=== PATIENT | female | born 1995 | race Caucasian/White ===

== ENCOUNTER 2016-10-18 16:58 | Outpatient (CLI) | payer MEDICAID ==
[~2016-10-18] VITALS: Ht 144.8 cm; Wt 60.0 kg
[~2016-10-18 16:58] MED LIST: CYCL-319 PO; HYDR-3498 PO
[2016-10-18 17:13] VITALS: BP 104/59; PULSE 98; RESP 18; Ht 144.8 cm; Wt 60.0 kg
[2016-10-18] MEDS ORDERED: PREN-93 PO (17:13)
[2016-10-18] MEDS ORDERED: FER325 PO (17:13)
[2016-10-18 18:24] LABS: BASOPHILS % 0.1 % (0.0-2.0); EOSINOPHILS % 0.2 % (0.0-7.0); HEMATOCRIT 33.5 % (37.0-47.0); HEMOGLOBIN 11.5 g/dl (12.0-16.0); LYMPHOCYTES # 1.3 10^3/ul (0.8-2.9); LYMPHOCYTES % 16.5 % (15.0-51.0); MEAN CORPUSCULAR HEMOGLOBIN 32.8 pg (29.0-33.0); MEAN CORPUSCULAR HGB CONC 34.3 g/dl (32.0-37.0); MEAN CORPUSCULAR VOLUME 95.4 fl (82.0-101.0); MEAN PLATELET VOLUME 10.2 fl (7.4-10.4); MONOCYTE # 0.6 10^3/ul (0.3-0.9); MONOCYTES % 7.7 % (0.0-11.0); NEUTROPHILS % 74.4 % (39.0-77.0); PLATELET COUNT 224 10^3/UL (140-415); RED BLOOD COUNT 3.51 10^6/ul (4.20-5.40); RED CELL DISTRIBUTION WIDTH 13.9 % (11.5-14.5); WHITE BLOOD COUNT 8.1 10^3/ul (4.8-10.8)
[2016-10-18 19:39] LABS: ADD UMIC NO; UR ASCORBIC ACID NEGATIVE (NEGATIVE); UR BILIRUBIN (Dip) NEGATIVE (NEGATIVE); UR BLOOD (Dip) NEGATIVE (NEGATIVE); UR CLARITY CLEAR (CLEAR); UR COLOR COLORLESS (YELLOW); UR GLUCOSE (Dip) NEGATIVE (NEGATIVE); UR KETONES (Dip) NEGATIVE (NEGATIVE); UR LEUKOCYTE ESTERASE (Dip) NEGATIVE Leu/ul (NEGATIVE); UR NITRITE (Dip) NEGATIVE (NEGATIVE); UR SPECIFIC GRAVITY (Dip) 1.002 (1.003-1.030); UR TOTAL PROTEIN (Dip) NEGATIVE (NEGATIVE); UR UROBILINOGEN (Dip) NEGATIVE (NEGATIVE)
--- NOTE | 2016-10-18 20:00 | RADRPT ---
AMENDMENT: 10/18/2016 8:15:38 PM Raphael Lawton M.D Amniotic fluid index was not measured. Follow-up examination can be obtained. Deepest vertical fluid pocket appears to measure 6.5 cm PROCEDURE: Obstetrical ultrasound. CLINICAL INDICATION: , evaluation. Pelvic pain. TECHNIQUE: Transabdominal and transvaginal sonographic images of the uterus obtained afte r first trimester, greater than 14 weeks gestation. Single intrauterine gestation present. COMPARISON: No prior studies are available for comparison. FINDINGS: Single intrauterine gestation. There is a transverse maternal left presentation. Measurements were made in order to determine age. The results are as follows: BPD = 26 weeks 4 day(s) HC = 26 weeks 2 day(s) AC = 26 weeks 6 day(s) FL = 26 weeks 0 day(s) Heart rate = 158 beats per minute The placenta is anterior. There is no evidence for an abruption or placenta previa. Cervix is closed as visualized transvaginally measuring 4.2 cm. Ovaries are not visualized. IMPRESSION: Single intrauterine gestation of approximately 26 weeks 2 days by ultrasound criteria. [place] estimated weight = 935 g; 53 percentile for gestational age of 26 weeks 1 days. Transverse maternal left presentation. RPTAT: AADD .Raphael Lawton MD, Date Time Electronically viewed and signed by .Raphael Lawton MD, MD on 10/18/2016 20:15 .B/
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
== END 2016-10-18 21:20 | disposition home or self-care (01) ==
LOC: OBT 16:58 → L-D 16:59 → OBT 21:20
PROVIDERS: ATTEND Obstetrics & Gynecology
DX: O9A.212 Injury, poisoning and certain other consequences of external causes complicating pregnancy, second trimester (principal); Z3A.26 26 weeks gestation of pregnancy; V49.9XXA Car occupant (driver) (passenger) injured in unspecified traffic accident, initial encounter; Y92.410 Unspecified street and highway as the place of occurrence of the external cause
CPT/HCPCS: 76815; 76817; 81003; 85025; 85384; 85460; 86850; 86900; 86901; Z7500; G0463

== ENCOUNTER 2017-01-05 18:33 | Outpatient (CLI) | payer MEDICAID ==
[~2017-01-05] VITALS: Ht 142.2 cm; Wt 65.7 kg
[~2017-01-05 18:33] MED LIST changes: -CYCL-319 PO; +FER325 PO; -HYDR-3498 PO; +PREN-93 PO
[2017-01-05 18:56] VITALS: BP 102/61; PULSE 124; RESP 18; Ht 142.2 cm; Wt 65.7 kg
--- NOTE | 2017-01-05 19:10 | RADRPT ---
PROCEDURE: US OB biophysical profile. CLINICAL INDICATION: decreased movements TECHNIQUE: Multiple sonographic images of the pelvis were obtained. The images were reviewed on a PACS workstation. COMPARISON: 10/18/2016 FINDINGS: There is a single viable intrauterine gestation. Cardiac activity is present with 163 beats per min [place]. There is a vertex presentation. The placenta is anterior. There is no evidence of placental abruption. There is a normal amount of amniotic fluid with an MARYLU = 8.5 cm. Biophysical profile: movement 2/2 tone 2/2. breathing 2/2 MARYLU 2/2 Total 09/13 RPTAT: AA . IMPRESSION: Normal biophysical profile. . .Antonio Beth MD, MD Date Time Electronically viewed and signed by .Antonio Beth MD, MD on 01/05/2017 19:08 .S/
[2017-01-05] MEDS ORDERED: ACETAMINOPHEN 500 MG TAB PO STA (20:05)
[2017-01-05 20:26] LABS: ADD UMIC NO; UR ASCORBIC ACID NEGATIVE (NEGATIVE); UR BILIRUBIN (Dip) NEGATIVE (NEGATIVE); UR BLOOD (Dip) NEGATIVE (NEGATIVE); UR CLARITY CLEAR (CLEAR); UR COLOR COLORLESS (YELLOW); UR GLUCOSE (Dip) NEGATIVE (NEGATIVE); UR KETONES (Dip) TRACE mg/dL (NEGATIVE); UR LEUKOCYTE ESTERASE (Dip) NEGATIVE Leu/ul (NEGATIVE); UR NITRITE (Dip) NEGATIVE (NEGATIVE); UR SPECIFIC GRAVITY (Dip) 1.001 (1.003-1.030); UR TOTAL PROTEIN (Dip) NEGATIVE (NEGATIVE); UR UROBILINOGEN (Dip) NEGATIVE (NEGATIVE)
[2017-01-05 20:39] LABS: BARBITURATES Negative (NEGATIVE); BENZODIAZEPINES Negative (NEGATIVE); CANNABINOIDS Negative (NEGATIVE); COCAINE Negative (NEGATIVE); OPIATES Negative (NEGATIVE)
--- NOTE | 2017-01-05 23:37 | PN ---
Triage Information Date/Time Jan 05, 2017 Reason for visit: DFM Weeks of Gestation 37w 3d /Para 2/0 Diabetes: none Hypertention: none Additional information PMHx: none. PSHx: none. NKDA. Objective Vital Signs Date Time Temp Pulse Resp B/P Pulse Ox O2 Delivery O2 Flow Rate FiO2 01/05/17 18:56 99.5 124 18 102/61 99 Room Air Heart Rate: 140's Heart Rate Comments Accels to 170 bpm. No decels. Contractions: < 5 Minutes Apart Exam 50%/closed/-2 Results/Medications Results 24 hrs Laboratory Tests Test 01/05/17 19:15 Urine Color COLORLESS Urine Clarity CLEAR Urine pH 7.0 Urine Specific [place] 1.001 L Urine Ketones TRACE A Urine Nitrite NEGATIVE Urine Bilirubin NEGATIVE Urine Urobilinogen NEGATIVE Urine Leukocyte Esterase NEGATIVE Urine Hemoglobin NEGATIVE Urine Glucose NEGATIVE Urine Total Protein NEGATIVE Urine Opiates Screen Negative Urine Barbiturates Negative Urine Amphetamines Screen Negative Urine Benzodiazepines Screen Negative Urine Cocaine Screen Negative Urine Cannabinoids Negative Imaging Results BPP 8/8. MARYLU 8.5 cm. Disposition: Discharge Assessment/Plan A: IUP at 37w 3d. Decreased movement. Prodromal labor. P: D/C home. Labor precautions given. Pt now feeling the baby moving. To keep up fluid intake as HR was up on admit but came down to 98-103 after a pitcher of water. KIMMIE CARMICHAEL MD Jan 05, 2017 23:37
--- NOTE | 2017-01-05 23:51 | TRIAGE ---
OB Triage Datetime Report Generated by CPN: 01/05/2017 23:50 Datetime: 01/05/2017 23:24 Stage of : OB Triage Labor Evaluation Frequency: 1.5-3 Monitor Mode: External Duration (sec)2399: 30-60 Quality: Mild Pattern: Normal: <= 5 Contractions in 10 Minutes Resting Tone [place]: Relaxed Heart Rate FHR Baseline Rate: 150 Monitor Mode: External US FHR Baseline Changes: No Baseline Change Variability: Moderate 6-25 bpm Accelerations: 15X15 Decelerations: None Category: Category I Pain Assessment Pain Scale: 4 Pain Presence: Intermittent Pain Type: Cramping Pain Location: Abdomen Datetime: 01/05/2017 22:36 Stage of : OB Triage Labor Evaluation Frequency: 1.5-3 Monitor Mode: External Duration (sec)2399: 30-60 Quality: Mild Pattern: Normal: <= 5 Contractions in 10 Minutes Resting Tone [place]: Relaxed Heart Rate FHR Baseline Rate: 140 Monitor Mode: External US Variability: Moderate 6-25 bpm Accelerations: 15X15 Pain Assessment Pain Scale: 5 Pain Presence: Intermittent Pain Type: Cramping Pain Location: Abdomen Datetime: 01/05/2017 21:20 Stage of : OB Triage Labor Evaluation Frequency: 2-4 Monitor Mode: External Quality: Mild Pattern: Normal: <= 5 Contractions in 10 Minutes Resting Tone [place]: Relaxed Heart Rate FHR Baseline Rate: 150 Monitor Mode: External US FHR Baseline Changes: No Baseline Change Variability: Moderate 6-25 bpm Accelerations: 15X15 Decelerations: None Category: Category I Pain Assessment Pain Scale: 1 Pain Presence: Intermittent Pain Type: Cramping Pain Location: Abdomen Pain Assessment Comments: Pt states she is feeling better after tylenol Datetime: 01/05/2017 20:26 Stage of : OB Triage Heart Rate FHR Baseline Rate: 145 Monitor Mode: External US FHR Baseline Changes: No Baseline Change Variability: Moderate 6-25 bpm Accelerations: 15X15 Decelerations: None Category: Category I Vaginal Exam Dilatation (cms): 0.0 Effacement (%): 50 Station: -2 Exam By: Harish Jacinto Membrane Status: Intact Vaginal Bleeding: None Cervix, Consistency: Moderate Cervix, Position: Posterior Presentation 'A': Cephalic Datetime: 01/05/2017 19:55 Stage of : OB Triage Datetime: 01/05/2017 19:40 Stage of : OB Triage Labor Evaluation Frequency: 1-3 Monitor Mode: External Duration (sec)2399: 20-60sec Quality: Mild Pattern: Normal: <= 5 Contractions in 10 Minutes Resting Tone [place]: Relaxed Heart Rate FHR Baseline Rate: 150 Monitor Mode: External US Variability: Moderate 6-25 bpm Accelerations: 15X15 Pain Assessment Pain Scale: 1 Pain Presence: Intermittent Pain Type: Cramping Pain Location: Abdomen Datetime: 01/05/2017 18:51 Assessment Type: Triage Time of Arrival: 01/05/2017 18:27 EGA: 37.3 Arrived By: Ambulatory Arrived From: Home Chief Complaint: c/o DFM Movement: Decreased Contractions: Denies/Absent Rupture of Membranes: Denies Vaginal Bleeding: None Vaginal Discharge: Denies Recent Sexual Intercouse: Denies Abdominal Trauma: Not Applicable Patient Complaints: None; Cough Time Provider Notified: 01/05/2017 18:50 Provider Notified: Dr Lerner Initial Plan: NST/BPP Maternal Assessment Level of Consciousness: Fully Conscious DTR's/Clonus: DTRs 2+; No Clonus Headache: Denies Blurred Vision: No Respiratory Effort: Unlabored; Regular Rhythm; Equal Expansion Breath Sounds, Left: Clear and Equal Breath Sounds, Right: Clear and Equal Nausea/Vomiting: Denies RUQ Epigastric Pain: Denies Lower Extremities Edema: None Degree: None Upper Extremities Edema: None Degree: None Facial Edema: None Fall Risk Assessment History of Falling: (0) No Secondary Diagnosis: (0) No Ambulatory Aid: (0) Bedrest/Nurse Assist IV Therapy: (0) No Gait: (0) Normal/Bedrest/Immobile Mental Status: (0) Oriented to Own Ability Fall Score: 0 Fall Risk Score Definition: No Risk: No action required Datetime: 01/05/2017 18:49 Monitor Mode: External Monitor Mode: External US Datetime: 10/18/2016 17:09 Fall Score: 0 Fall Risk Score Definition: No Risk: No action required Datetime: 10/18/2016 17:08 EGA: 26.1
== END 2017-01-05 23:36 | disposition home or self-care (01) ==
LOC: OBT 18:33 → L-D 18:35 → OBT 23:36
PROVIDERS: ATTEND Obstetrics & Gynecology
DX: O36.8130 Decreased fetal movements, third trimester, not applicable or unspecified (principal); Z3A.37 37 weeks gestation of pregnancy
CPT/HCPCS: 76818; 80307; 81003; Z7610; G0463

== ENCOUNTER 2017-01-26 10:42 | Inpatient (IN) | payer MEDICAID ==
[~2017-01-26] VITALS: Ht 144.8 cm; Wt 65.5 kg
[~2017-01-26 10:42] MED LIST changes: -FER325 PO
[2017-01-26 10:53] VITALS: BP 110/58; PULSE 115; RESP 18; Ht 144.8 cm; Wt 65.5 kg
[2017-01-26] MEDS ORDERED: FER325 PO (10:53)
--- NOTE | 2017-01-26 11:12 | RADRPT ---
PROCEDURE: Obstetrical ultrasound. CLINICAL INDICATION: , evaluation. Pelvic pain. Post dates TECHNIQUE: Transabdominal sonographic images of the uterus obtained after first trimester , greater than 14 weeks gestation. Single intrauterine gestation present. COMPARISON: US PELVIS 01/05/2017 FINDINGS: Single intrauterine gestation. There is a cephalic presentation. Measurements were made in order to determine age. The results are as follows: BPD = 37 weeks 6 day(s) HC = 38 weeks 1 day(s) AC = 40 weeks 3 day(s) FL = 38 weeks 6 day(s) MARYLU = not measured Heart rate = 161 beats per minute The placenta is anterior. There is no evidence for an abruption or placenta previa. Ovaries are not visualized. IMPRESSION: Single intrauterine gestation of approximately 38 weeks 6 days by ultrasound criteria. [place] estimated weight = 3808 g; 59 percentile for gestational age of 40 weeks 3 days. RPTAT: AADD .Raphael Lawton MD, MD Date Time Electronically viewed and signed by .Raphael Lawton MD, on 01/26/2017 11:12 .B/
--- NOTE | 2017-01-26 11:19 | RADRPT ---
PROCEDURE: US OB biophysical profile. CLINICAL INDICATION: Biophysical profile TECHNIQUE: Multiple sonographic images of the pelvis were obtained. The images were reviewed on a PACS workstation. COMPARISON: None FINDINGS: There is a single live intrauterine , in cephalic presentation. A normal heart rate i s identified measuring 142 beats per minute. The amniotic fluid index is within normal limits measur ing 8.3 cm. The placenta is grade II located anteriorly. Biophysical profile: movement 2/2 tone 2/2. breathing 2/2 MARYLU 2/2 Total 09/13 IMPRESSION: 1. Biophysical profile score of 8/8. 2. Single live intrauterine in cephalic presentation with normal heart rate of 142 b pm. 3. Normal amniotic fluid index of 8.3 cm. RPTAT: AAPP Physician Debbie Date Time Electronically viewed and signed by Physician Debbie on 01/26/2017 11:18 SANDRA/
--- NOTE | 2017-01-26 11:53 | TRIAGE ---
OB Triage Datetime Report Generated by CPN: 01/26/2017 11:53 Datetime: 01/26/2017 11:42 Vaginal Exam Dilatation (cms): 2.0 Effacement (%): 70 Station: -2 Exam By: REX Vaginal Bleeding: None Cervix, Consistency: Soft Cervix, Position: Midposition Presentation 'A': Cephalic Datetime: 01/26/2017 11:39 Labor Evaluation Monitor Mode: External Heart Rate Monitor Mode: External US Datetime: 01/26/2017 10:51 Assessment Type: Triage Maternal Assessment Level of Consciousness: Fully Conscious DTR's/Clonus: DTRs 2+; No Clonus Headache: Denies Blurred Vision: No Respiratory Effort: Unlabored; Regular Rhythm; Equal Expansion Breath Sounds, Left: Clear and Equal Breath Sounds, Right: Clear and Equal Nausea/Vomiting: Denies RUQ Epigastric Pain: Denies Lower Extremities Edema: None Degree: None Upper Extremities Edema: None Degree: None Facial Edema: None Fall Risk Assessment History of Falling: (0) No Secondary Diagnosis: (0) No Ambulatory Aid: (0) Bedrest/Nurse Assist IV Therapy: (0) No Gait: (0) Normal/Bedrest/Immobile Mental Status: (0) Oriented to Own Ability Fall Score: 0 Fall Risk Score Definition: No Risk: No action required Datetime: 01/26/2017 10:48 Time of Arrival: 01/26/2017 10:40 EGA: 40.3 Arrived By: Ambulatory Arrived From: Home Chief Complaint: pt here for NST/BPP FOR POST DATES Movement: Decreased Contractions: Denies/Absent Rupture of Membranes: Denies Vaginal Bleeding: None Vaginal Discharge: Denies Recent Sexual Intercouse: Denies Abdominal Trauma: Not Applicable Patient Complaints: None Time Provider Notified: 01/26/2017 10:50 Provider Notified: REX Initial Plan: NST/BPP/EFW Datetime: 01/26/2017 10:46 Labor Evaluation Monitor Mode: External Heart Rate Monitor Mode: External US Datetime: 01/05/2017 18:51 EGA: 37.3 Fall Score: 0 Fall Risk Score Definition: No Risk: No action required Datetime: 10/18/2016 17:09 Fall Score: 0 Fall Risk Score Definition: No Risk: No action required Datetime: 10/18/2016 17:08 EGA: 26.1
[2017-01-26] MEDS ORDERED: METHYLERGONOVINE 0.2 MG INJ IM PRN (12:00)
[2017-01-26] MEDS ORDERED: MISOPROSTOL 200 MCG TAB PR PRN (12:00)
[2017-01-26] MEDS ORDERED: CARBOPROST 250 MCG INJ IM PRN (12:00)
[2017-01-26] MEDS ORDERED: BUTORPHANOL 2 MG INJ IV PRN (12:00)
[2017-01-26] MEDS ORDERED: IBUPROFEN 600 MG TAB PO PRN (12:00)
[2017-01-26] MEDS ORDERED: LIDOCAINE 1% (MPF) 30 ML INJ INJ PRN (12:00)
[2017-01-26] MEDS ORDERED: OXYTOCIN 30 UNITS/LR 500 ML IV PRN (12:00)
[2017-01-26 13:50] LABS: BASOPHILS % 0.2 % (0.0-2.0); EOSINOPHILS % 0.2 % (0.0-7.0); HEMATOCRIT 39.8 % (37.0-47.0); LYMPHOCYTES # 1.4 10^3/ul (0.8-2.9); LYMPHOCYTES % 21.8 % (15.0-51.0); MEAN CORPUSCULAR HEMOGLOBIN 32.7 pg (29.0-33.0); MEAN CORPUSCULAR HGB CONC 35.2 g/dl (32.0-37.0); MEAN PLATELET VOLUME 10.7 fl (7.4-10.4); MONOCYTE # 0.4 10^3/ul (0.3-0.9); NEUTROPHIL # 4.6 10^3/ul (1.6-7.5); NEUTROPHILS % 71.2 % (39.0-77.0); PLATELET COUNT 255 10^3/UL (140-415); RED BLOOD COUNT 4.28 10^6/ul (4.20-5.40); RED CELL DISTRIBUTION WIDTH 13.1 % (11.5-14.5); WHITE BLOOD COUNT 6.5 10^3/ul (4.8-10.8)
[2017-01-26 14:15] LABS: INR 0.85; PARTIAL THROMBOPLASTIN TIME 30.7 Sec (25.0-35.0); PROTIME 11.7 Sec (11.9-14.9); PT RATIO 0.9
[2017-01-26] MEDS: LACTATED RINGER'S 1,000 ML IV SCH ×2 (15:13→19:18)
[2017-01-26] MEDS: OXYTOCIN 30 UNITS/LR 500 ML IV SCH (15:22)
[2017-01-26] MEDS ORDERED: OXYTOCIN 30 UNITS/LR 500 ML IV SCH ×2 (15:30)
[2017-01-27] MEDS: LACTATED RINGER'S 1,000 ML IV SCH ×5 (03:13→20:15)
[2017-01-27] MEDS ORDERED: FENTAnyl 2MCG/ML-ROPIV 0.2% 100 ML ONE (04:36)
[2017-01-27] MEDS ORDERED: NALOXONE (0.4 MG/ML) INJ IV PRN (05:00)
[2017-01-27] MEDS ORDERED: HYDROmorphONE 0.5 MG/0.5 ML SYG IV PRN ×2 (05:00)
[2017-01-27] MEDS ORDERED: KETOROLAC 30 MG INJ IV PRN (05:00)
[2017-01-27] MEDS ORDERED: ONDANSETRON 4 MG INJ IV PRN (05:00)
[2017-01-27] MEDS ORDERED: DIPHENHYDRAMINE 50 MG INJ IV PRN (05:00)
[2017-01-27] MEDS: FENTAnyl 2MCG/ML-ROPIV 0.2% 100 ML BAG EPI SCH ×2 (13:58→20:20)
[2017-01-27] MEDS ORDERED: AZITHROMYCIN 500MG/NS (PMX) 250 ML IVPB ONE (17:30)
--- NOTE | 2017-01-27 18:13 | HP ---
Date/Time of Note Date/Time of Note DATE: 01/27/17 TIME: 18:07 OB - History Hx of Present Free Text/Dictation This is a 20 years old female SAB 1 EDC January 23, 2017 admitted to the hospital at 40 weeks and 3 days gestation in labor pelvic, examination on admission cervix 2 cm dilated 70% effaced vertex at -2 station heart rate category 1, physical profile 8/80 estimated weight 3808. Chief Complaint: Labor contraction Estimated Due Date: Jan 23, 2017 : 2 Para: 0 Spontaneous : 1 Care: Good Care Ultrasounds: Normal mid trimester US Obstetrical Complications: None Medical Complications: None Past Family/Social History * Past Medical, Surgical, Family and Obstetric Histories reviewed from chart. Rubella: immune RPR/VDRL: Negative GBS Status: Negative HBsAG: Negative OB Admission Exam Vital Signs Vital Signs Vital Signs Date Time Temp Pulse Resp B/P Pulse Ox O2 Delivery O2 Flow Rate FiO2 01/26/17 10:53 98.4 115 18 110/58 Room Air Physical Exam HEENT: WNL Heart: Rhythm Normal Lungs: Clear, Equal Abdomen: WNL Extremities: Normal Reflexes: Normal Cervical Dilatation: 2cm Effacement: Other (70%) Station: -2 Membranes: Intact Heart Rate: 120's Accelerations: Accelerations Present Decelerations: No Decelerations Varibility: Moderate Contractions on Admission: >10 Minutes Apart Intensity: Mild Last 72 hours Lab Results CBC & BMP 01/26/17 13:30 JOSE GUADALUPE GOODMAN MD Jan 27, 2017 18:13
[2017-01-27] MEDS ORDERED: ACETAMINOPHEN 325 MG TAB PO PRN (19:00)
[2017-01-27] MEDS ORDERED: GENTAMICIN 120 MG/NS (PMX) 100 ML IVPB ONE (20:00)
[2017-01-27] MEDS ORDERED: GENTAMICIN IVPB ONE (20:03)
[2017-01-27] MEDS ORDERED: NS IVPB ONE (20:03)
[2017-01-27] MEDS ORDERED: GENTAMICIN 120 MG/NS (PMX) 100 ML IVPB PRN (20:30)
[2017-01-27] MEDS: AMPICILLIN 1 GM/NS (PMX) 50 ML IVPB SCH (20:54)
[2017-01-28] MEDS: LACTATED RINGER'S 1,000 ML IV SCH ×2 (00:30→23:00)
[2017-01-28] MEDS: AMPICILLIN 1 GM/NS (PMX) 50 ML IVPB SCH ×3 (00:30→09:03)
[2017-01-28] MEDS: FENTAnyl 2MCG/ML-ROPIV 0.2% 100 ML BAG EPI SCH ×2 (02:57→08:53)
[2017-01-28] MEDS ORDERED: GENTAMICIN 80 MG/NS (PMX) 50 ML IVPB SCH (04:00)
[2017-01-28] MEDS: OXYTOCIN 30 UNITS/LR 500 ML IV SCH (04:29)
[2017-01-28] MEDS ORDERED: CEFAZOLIN 2 GM/50 ML (PMX) 50 ML IVPB ONE (10:00)
[2017-01-28] MEDS ORDERED: LIDOCAINE 2% (SDV) 5 ML INJ ONE (10:47)
[2017-01-28] MEDS ORDERED: NA BICARBONATE 8.4% 50 ML SYG ONE (10:47)
[2017-01-28] MEDS ORDERED: METOCLOPRAMIDE 10 MG INJ ONE (10:48)
[2017-01-28] MEDS ORDERED: OXYTOCIN 10 UNIT INJ ONE (10:48)
[2017-01-28] MEDS ORDERED: FENTAnyl 50 MCG/ML VIAL ONE ×2 (10:48→11:23)
[2017-01-28] MEDS ORDERED: morphine SULFATE/PF (10 MG/10 ML) INJ ONE (10:48)
[2017-01-28] MEDS ORDERED: PHENYLephrine (100 MCG/ML) 5ML SYG ONE (10:48)
[2017-01-28] MEDS ORDERED: DEXAMETHASONE 4 MG/ML 1 ML INJ ONE (11:10)
[2017-01-28] MEDS ORDERED: MIDAZOLAM 1 MG/ML 2 ML INJ ONE (11:17)
[2017-01-28] MEDS ORDERED: hydrALAzine 20 MG INJ IV PRN (11:30)
[2017-01-28] MEDS ORDERED: LABETALOL HCL 20MG INJ IV PRN (11:30)
[2017-01-28] MEDS ORDERED: morphine 2 MG INJ IV PRN (11:30)
[2017-01-28] MEDS ORDERED: NALBUPHINE HCL (10 MG/1 ML) INJ IV PRN (11:30)
[2017-01-28] MEDS ORDERED: ALBUTEROL 0.083% (NEB) 2.5 MG/3 ML AMP HHN PRN (11:30)
[2017-01-28] MEDS ORDERED: OXYCODONE/ACETAMINOPHEN (5/325) TAB PO PRN ×8 (11:30→12:30)
[2017-01-28] MEDS ORDERED: MEPERIDINE 25 MG INJ IV PRN (11:30)
[2017-01-28] MEDS ORDERED: IPRATROPIUM (NEB) 0.5 MG/2.5 ML AMP HHN PRN (11:30)
[2017-01-28] MEDS ORDERED: NALOXONE (0.4 MG/ML) INJ IV PRN (11:30)
[2017-01-28] MEDS ORDERED: DIPHENHYDRAMINE 50 MG INJ IV PRN ×2 (11:30)
[2017-01-28] MEDS ORDERED: KETOROLAC 30 MG INJ IV PRN (11:30)
[2017-01-28] MEDS ORDERED: EPHEDrine SULFATE 50 MG/5 ML SYG IV PRN (11:30)
[2017-01-28] MEDS ORDERED: FENTAnyl 50 MCG/ML VIAL IV PRN ×3 (11:30)
[2017-01-28] MEDS ORDERED: HYDROmorphONE (0.2 MG/ML) 10ML SYG IV PRN ×3 (11:30)
[2017-01-28] MEDS ORDERED: morphine 4 MG/ML VIAL IV PRN (11:30)
[2017-01-28] MEDS ORDERED: TRIMETHOBENZAMIDE 100 MG/ML VIAL IM PRN ×2 (11:30)
[2017-01-28] MEDS ORDERED: ONDANSETRON 4 MG INJ IV PRN ×2 (11:30)
[2017-01-28] MEDS ORDERED: MIDAZOLAM 1 MG/ML 2 ML INJ IV PRN (11:30)
[2017-01-28] MEDS ORDERED: OXYTOCIN 30 UNITS/LR 500 ML IV SCH ×4 (12:23)
[2017-01-28] MEDS ORDERED: LANOLIN 7 GM TUBE TOP PRN ×3 (12:30)
[2017-01-28] MEDS ORDERED: METHYLERGONOVINE 0.2 MG INJ IM PRN ×4 (12:30)
[2017-01-28] MEDS ORDERED: CEFAZOLIN 1 GM/50 ML (PMX) 50 ML IVPB SCH ×4 (12:30)
[2017-01-28] MEDS ORDERED: CARBOPROST 250 MCG INJ IM PRN ×4 (12:30)
[2017-01-28] MEDS ORDERED: OXYTOCIN 30 UNITS/LR 500 ML IV PRN ×4 (12:30)
[2017-01-28] MEDS ORDERED: MISOPROSTOL 200 MCG TAB PR PRN ×4 (12:30)
[2017-01-28] MEDS ORDERED: HYDROCODONE/APAP (5/325) TAB PO PRN ×6 (12:30)
--- NOTE | 2017-01-28 12:54 | OPR ---
Operative Report Planned Procedure Free Text/Dictation 20 years old female EDC January 23, 2017 admitted to the hospital at 40 weeks and 3 days in early labor week examination on admission cervix 2 cm dilated 70% effaced vertex at -2 station, mild contraction required labor augmentation. Cervical dilatation progressed to 7 cm as of yesterday evening in spite of good contraction and category 1 heart tracing cervix to dilate further and presenting part stayed at -1 -2 station due to the failure to progress over approximately 10-12 hours the option of section discussed pros and cons , complication of surgery including but not limited to bowel bladder injury infection hemorrhage wound infection and hematoma explained to her and she is willing to deliver by section. Procedure date Jan 28, 2017 Procedure(s) Primary due to failure to progress over 12 hours Performed by see signature line Hris Analyst [facility] Anesthesiologist: Ivan Aggarwal M.D. Pre-procedure diagnosis 40 weeks 4 days , failure to progress versus stage of labor over 12 hours declined further trial of labor requested delivery Anesthesia Type: spinal Post-Procedure Post-procedure diagnosis Same as above Findings Live Baby boy Apgars 8 and 9 Estimated Blood Loss: 600 - 700 mls Specimen(s) none Grafts/Implant(s) none Complication(s) none Pt Condition post procedure: stable Procedure Description Under satisfactory spinal anesthesia patient prepped and draped and placed in supine position. Pfannenstiel incision was made. Incision carried through the subcutaneous tissue. Fascia incised to the length of incision. Rectus muscle divided in midline. Peritoneum exposed and entered to a vertical incision. Exploration of abdomen revealed [gravid uterus at term normal-appearing tubes and ovaries.] Bladder flap was developed. Transverse incision was made in the lower segment of the uterus. Amniotic sac ruptured, [clear amniotic fluid noted. ] Live baby boy was delivered from unengaged vertex occiput posterior.Naso oropharyngeal suction was performed. Baby handed to the team for immediate attention. Patient received 20 units of Pitocin 200 mg of Cytotec. Placenta delivered manually intact. Uterine cavity cleaned with a wet sponge and drainage established. Uterus closed in 2 layers using Monocryl #1 in continuous fashion. Peritoneal cavity irrigated with warm saline. Sponge needle instrument reported to be correct. Abdominal peritoneum closed with 2-0 chromic catgut continuously. Fascia closed with #1 PDS in a continuous fashion. Subcutaneous tissue irrigated with warm saline and approximated with 2-0 chromic catgut skin closed with N sorb estimated blood loss [6-700 cc]. Urine bag containing [200] mL of [clear] urine. Patient tolerated procedure well and transferred to recovery room in good condition. JOSE GUADALUPE GOODMAN MD Jan 28, 2017 12:53
[2017-01-28 14:10] VITALS: BP 102/62; PULSE 106; RESP 18
[2017-01-28 16:04] VITALS: BP 102/69; PULSE 119; RESP 16
[2017-01-28] MEDS ORDERED: IBUPROFEN 600 MG TAB PO SCH (18:00)
[2017-01-28] MEDS: IBUPROFEN 600 MG TAB PO SCH (18:00)
[2017-01-28 20:00] VITALS: BP 92/18; PULSE 109; RESP 18
[2017-01-28] MEDS ORDERED: SENNA/DOCUSATE NA (8.6MG/50MG) TAB PO SCH (21:00)
[2017-01-28] MEDS: SENNA/DOCUSATE NA (8.6MG/50MG) TAB PO SCH (21:36)
[2017-01-29] VITALS: BP 98/60; PULSE 108; RESP 19
[2017-01-29] MEDS ORDERED: IBUPROFEN 600 MG TAB PO SCH
[2017-01-29] MEDS: IBUPROFEN 600 MG TAB PO SCH ×4 (00:21→17:48)
[2017-01-29 04:00] VITALS: BP 89/54; PULSE 89; RESP 17
[2017-01-29] MEDS: LACTATED RINGER'S 1,000 ML IV SCH ×2 (07:03→12:23)
[2017-01-29 07:40] VITALS: BP 95/57; PULSE 83; RESP 16
[2017-01-29 08:49] LABS: BASOPHILS % 0.2 % (0.0-2.0); EOSINOPHILS # 0.1 10^3/ul (0.0-0.5); EOSINOPHILS % 0.7 % (0.0-7.0); HEMATOCRIT 24.2 % (37.0-47.0); HEMOGLOBIN 8.5 g/dl (12.0-16.0); LYMPHOCYTES # 1.8 10^3/ul (0.8-2.9); MEAN CORPUSCULAR HEMOGLOBIN 33.1 pg (29.0-33.0); MEAN CORPUSCULAR HGB CONC 35.1 g/dl (32.0-37.0); MEAN CORPUSCULAR VOLUME 94.2 fl (82.0-101.0); MEAN PLATELET VOLUME 10.4 fl (7.4-10.4); MONOCYTE # 0.9 10^3/ul (0.3-0.9); MONOCYTES % 7.7 % (0.0-11.0); NEUTROPHIL # 8.6 10^3/ul (1.6-7.5); PLATELET COUNT 146 10^3/UL (140-415); RED BLOOD COUNT 2.57 10^6/ul (4.20-5.40); RED CELL DISTRIBUTION WIDTH 13.2 % (11.5-14.5); WHITE BLOOD COUNT 11.4 10^3/ul (4.8-10.8)
[2017-01-29] MEDS: SENNA/DOCUSATE NA (8.6MG/50MG) TAB PO SCH ×2 (08:53→21:16)
[2017-01-29] MEDS ORDERED: SENNA/DOCUSATE NA (8.6MG/50MG) TAB PO SCH (09:00)
--- NOTE | 2017-01-29 09:30 | PN ---
Date/Time of Note Date/Time of Note DATE: 01/29/17 TIME: 09:26 Assessment/Plan Lines/Catheters IV Catheter Type (from Nrsg): Peripheral IV Assessment/Plan Chief Complaint/Hosp Course Patient has no complaints Problems: Assessment/Plan We will SKYLER Scruggs Encourage patient to ambulate Advance diet as tolerated Pain meds as needed Repeat CBC in a.m. Subjective 24 Hr Interval Summary Postop day #1 status post primary Constitutional: BM, ambulates, flatus, improved, no complaints, urine output Pain Control: well controlled Exam/Review of Systems Vital Signs Vitals Vital Signs Date Time Temp Pulse Resp B/P Pulse Ox O2 Delivery O2 Flow Rate FiO2 01/29/17 07:40 98.3 83 16 95/57 Room Air 01/29/17 03:59 98 21 Intake and Output 01/28/17 01/28/17 01/29/17 15:00 23:00 07:00 Intake Total 175 ml 1250 ml Output Total 670 ml 750 ml 850 ml Balance -495 ml 500 ml -850 ml Exam Free Text/Dictation No flatus Constitutional: alert, oriented, well developed Psych: nl mood/affect, no complaints Head: atraumatic, normocephalic Eyes: EOMI, nl conjunctiva, nl lids, nl sclera ENMT: mucosa pink and moist, nl external ears & nose, nl lips & teeth, nl nasal mucosa & septum Neck: non-tender, supple Respiratory: clear to auscultation, normal air movement Cardiovascular: nl pulses, regular rate and rhythm Gastrointestinal: nl liver, spleen, non-tender, soft Musculoskeletal: nl extremities to inspection, nl gait and stance Extremities: normal pulses Neurological: WEB MACHINE TENDER II-XII intact, nl mental status, nl speech, nl strength Skin: nl turgor, rash or lesions Lymph: nl lymph nodes Results Result Diagram: 01/29/17 0819 THERESA BAEZ MD Jan 29, 2017 09:30
[2017-01-29 11:50] VITALS: BP 94/63; PULSE 85; RESP 18
[2017-01-29 16:40] VITALS: BP 100/65; RESP 18
[2017-01-29 20:40] VITALS: BP 101/60; PULSE 80; RESP 18
[2017-01-30] MEDS: IBUPROFEN 600 MG TAB PO SCH ×4 (00:30→17:49)
[2017-01-30 04:00] VITALS: BP 96/65; PULSE 70; RESP 17
[2017-01-30 07:50] VITALS: BP 92/61; PULSE 71; RESP 18
[2017-01-30] MEDS: SENNA/DOCUSATE NA (8.6MG/50MG) TAB PO SCH ×2 (09:01→21:04)
[2017-01-30 09:05] LABS: BASOPHILS % 0.1 % (0.0-2.0); EOSINOPHILS # 0.1 10^3/ul (0.0-0.5); EOSINOPHILS % 0.8 % (0.0-7.0); HEMATOCRIT 24.5 % (37.0-47.0); HEMOGLOBIN 8.4 g/dl (12.0-16.0); LYMPHOCYTES # 1.8 10^3/ul (0.8-2.9); MEAN CORPUSCULAR HEMOGLOBIN 32.8 pg (29.0-33.0); MEAN CORPUSCULAR HGB CONC 34.3 g/dl (32.0-37.0); MEAN CORPUSCULAR VOLUME 95.7 fl (82.0-101.0); MEAN PLATELET VOLUME 10.8 fl (7.4-10.4); MONOCYTE # 0.6 10^3/ul (0.3-0.9); MONOCYTES % 6.7 % (0.0-11.0); NEUTROPHILS % 70.8 % (39.0-77.0); PLATELET COUNT 158 10^3/UL (140-415); RED BLOOD COUNT 2.56 10^6/ul (4.20-5.40); RED CELL DISTRIBUTION WIDTH 13.2 % (11.5-14.5); WHITE BLOOD COUNT 8.4 10^3/ul (4.8-10.8)
[2017-01-30 16:00] VITALS: BP 107/74; PULSE 57; RESP 16
--- NOTE | 2017-01-30 20:26 | PN ---
Date/Time of Note Date/Time of Note DATE: 01/30/17 TIME: 20:23 OB Subjective Subjective Subjective Post C section day 2 Doing Well Slightly anemic Afebrile Ambulatory Chest Clear Breasts are soft , Nipples are intact Abdomen is soft Fundus is firm Moderate amount of lochia Incision is clean ,No evidence of infection No calf tenderness No ankle edema Laboratory Tests Test 01/30/17 08:18 White Blood Count 8.410^3/ul Red Blood Count 2.5610^6/ul Hemoglobin 8.4g/dl Hematocrit 24.5% Mean Corpuscular Volume 95.7fl Mean Corpuscular Hemoglobin 32.8pg Mean Corpuscular Hemoglobin Concent 34.3g/dl Red Cell Distribution Width 13.2% Platelet Count 38111^3/UL Mean Platelet Volume 10.8fl Neutrophils % 70.8% Lymphocytes % 21.0% Monocytes % 6.7% Eosinophils % 0.8% Basophils % 0.1% Nucleated Red Blood Cells % 0.0/100WBC Neutrophils # 6.010^3/ul Lymphocytes # 1.810^3/ul Monocytes # 0.610^3/ul Eosinophils # 0.110^3/ul Basophils # 0.010^3/ul Nucleated Red Blood Cells # 0.010^3/ul Current Medications Medications (Trade) Dose Ordered Sig/Cora Route PRN Reason Start Time Stop Time Status Last Admin Dose Admin Lactated Ringer's 1,000 ml @ 125 mls/hr Q8H IV 01/26/17 11:54 01/28/17 12:34 DC 01/28/17 00:30 Oxytocin/Lactated Ringer's 500 ml @ 0 mls/hr TITRATE IV 01/26/17 12:00 01/28/17 12:34 DC 01/28/17 04:29 Butorphanol Tartrate (Stadol) 2 mg Q2H PRN IV PAIN 01/26/17 12:00 01/28/17 12:34 DC 01/27/17 01:01 Lidocaine (Xylocaine 1% (Mpf)) 30 ml ONCE PRN INJ EPISIOTOMY/TEARING 01/26/17 12:00 01/28/17 12:34 DC Ibuprofen 600 mg 600 mg ONCE PRN PO Mild Pain (Pain Score 1-3) 01/26/17 12:00 01/28/17 12:34 DC Oxytocin/Lactated Ringer's 500 ml @ 0 mls/hr ONCE PRN IV For Hemorrhage Management 01/26/17 12:00 01/28/17 12:34 DC Methylergonovine Maleate (Methergine) 0.2 mg ONCE PRN IM VAGINAL BLEEDING 01/26/17 12:00 01/28/17 12:34 DC Carboprost Tromethamine (Hemabate) 250 mcg ONCE PRN IM VAGINAL BLEEDING 01/26/17 12:00 01/28/17 12:34 DC Misoprostol 1000 mcg 1,000 mcg ONCE PRN MO VAGINAL BLEEDING 01/26/17 12:00 01/28/17 12:34 DC Oxytocin/Lactated Ringer's 500 ml @ 500 mls/hr ONCE POST IV 01/26/17 15:30 01/28/17 12:34 DC 01/28/17 12:26 Oxytocin/Lactated Ringer's 500 ml @ 125 mls/hr POST IV 01/26/17 15:30 01/28/17 18:18 Fentanyl/ Ropivacaine 100 ml @ STK-MED ONCE .ROUTE 01/27/17 04:36 01/27/17 04:37 DC Naloxone HCl (Narcan) 0.1 mg Q2M PRN IV FOR RESP RATE 8 OR LESS 01/27/17 05:00 01/28/17 04:59 DC Ketorolac Tromethamine (Toradol) 30 mg Q6H PRN IV PAIN 01/27/17 05:00 01/28/17 04:59 DC Hydromorphone HCl (Dilaudid) 0.2 mg Q3H PRN IV PAIN LEVEL 1-5 01/27/17 05:00 01/28/17 04:59 DC Hydromorphone HCl (Dilaudid) 0.4 mg Q3H PRN IV PAIN LEVEL 6-10 01/27/17 05:00 01/28/17 04:59 DC Diphenhydramine HCl (Benadryl) 25 mg Q6H PRN IV ITCHING 01/27/17 05:00 01/28/17 04:59 DC Ondansetron HCl (Zofran Inj) 4 mg Q6H PRN IV NAUSEA AND/OR VOMITING 01/27/17 05:00 01/28/17 04:59 DC Fentanyl/ Ropivacaine 100 ml 100 ml EPIDURAL INFUSION EPI 01/27/17 05:00 01/28/17 12:34 DC 01/28/17 08:53 Azithromycin 250 ml @ 250 mls/hr ONCE ONCE IVPB 01/27/17 17:30 01/27/17 18:29 DC 01/27/17 17:43 Ampicillin (Ampicillin 1 Gm/ NS (Pmx)) 50 ml @ 100 mls/hr Q4 IVPB 01/27/17 21:00 01/28/17 12:34 DC 01/28/17 09:03 Acetaminophen 650 mg 650 mg Q4H PRN PO PAIN AND OR ELEVATED TEMP 01/27/17 19:00 01/28/17 12:34 DC 01/27/17 18:53 Gentamicin Sulfate 100 ml @ 200 mls/hr ONCE ONCE IVPB 01/27/17 20:00 01/27/17 20:08 DC Gentamicin Sulfate 50 ml @ 104 mls/hr Q8H IVPB 01/28/17 04:00 01/28/17 04:00 DC Gentamicin Sulfate 0 ml @ ud STK-MED ONCE IVPB 01/27/17 20:03 01/27/17 20:04 DC Gentamicin Sulfate 100 ml @ 200 mls/hr ONCE PRN IVPB ELEVATED TEMPERATURE 01/27/17 20:30 01/28/17 12:34 DC Cefazolin Sodium/ Dextrose (Ancef 2 Gm/50 ml (Pmx)) 50 ml @ 100 mls/hr ONCE ONCE IVPB 01/28/17 10:00 01/28/17 10:29 DC 01/28/17 10:44 Lidocaine (Xylocaine 2% (Sdv)) 100 mg STK-MED ONCE .ROUTE 01/28/17 10:47 01/28/17 10:48 DC Sodium Bicarbonate (Na Bicarb 8.4% Syg) 50 ml STK-MED ONCE .ROUTE 01/28/17 10:47 01/28/17 10:48 DC Morphine Sulfate (Duramorph) 10 mg STK-MED ONCE .ROUTE 01/28/17 10:48 01/28/17 10:49 DC Fentanyl (Sublimaze) 100 mcg STK-MED ONCE .ROUTE 01/28/17 10:48 01/28/17 10:49 DC Metoclopramide HCl (Reglan) 10 mg STK-MED ONCE .ROUTE 01/28/17 10:48 01/28/17 10:49 DC Oxytocin (Oxytocin) 10 units STK-MED ONCE .ROUTE 01/28/17 10:48 01/28/17 10:49 DC Phenylephrine HCl (Jignesh-Synephrine Inj Syg) 500 mcg STK-MED ONCE .ROUTE 01/28/17 10:48 01/28/17 10:49 DC Dexamethasone (Decadron) 4 mg STK-MED ONCE .ROUTE 01/28/17 11:10 01/28/17 11:11 DC Midazolam HCl (Versed) 2 mg STK-MED ONCE .ROUTE 01/28/17 11:17 01/28/17 11:18 DC Fentanyl (Sublimaze) 100 mcg STK-MED ONCE .ROUTE 01/28/17 11:23 01/28/17 11:24 DC Naloxone HCl (Narcan) 0.1 mg Q2M PRN IV FOR RESP RATE 8 OR LESS 01/28/17 11:30 01/28/17 14:31 DC Ketorolac Tromethamine (Toradol) 30 mg Q6H PRN IV PAIN 01/28/17 11:30 01/29/17 10:40 DC 01/28/17 18:16 Morphine Sulfate (morphine) 2 mg Q3H PRN IV PAIN LEVEL 1-5 01/28/17 11:30 01/28/17 14:31 DC Morphine Sulfate (morphine) 4 mg Q3H PRN IV PAIN LEVEL 6-10 01/28/17 11:30 01/28/17 14:31 DC Diphenhydramine HCl (Benadryl) 25 mg Q6H PRN IV ITCHING 01/28/17 11:30 01/28/17 14:31 DC Nalbuphine HCl (Nubain) 5 mg ONCE PRN IV ITCHING 01/28/17 11:30 01/28/17 14:31 DC Ondansetron HCl (Zofran Inj) 4 mg Q6H PRN IV NAUSEA AND/OR VOMITING 01/28/17 11:30 01/28/17 14:31 DC Trimethobenzamide HCl (Tigan) 200 mg Q6H PRN IM NAUSEA AND/OR VOMITING 01/28/17 11:30 01/28/17 14:31 DC Miscellaneous Information (* Miscellaneous Pharmacy Order) Duramorph: 2 mg Epidu... GIVEN XX 01/28/17 11:30 01/28/17 14:31 DC Hydromorphone HCl (Dilaudid (Rec)) 0.2 mg PACU ORDER PRN IV MILD PAIN LEVEL 1-3 01/28/17 11:30 01/28/17 16:00 DC Hydromorphone HCl (Dilaudid (Rec)) 0.4 mg PACU ORDER PRN IV MODERATE PAIN LEVEL 4-6 01/28/17 11:30 01/28/17 14:31 DC Hydromorphone HCl (Dilaudid (Rec)) 0.6 mg PACU ORDER PRN IV SEVERE PAIN LEVEL 7-10 01/28/17 11:30 01/28/17 14:31 DC Fentanyl (Sublimaze) 25 mcg PACU ORDER PRN IV MILD PAIN LEVEL 1-3 01/28/17 11:30 01/28/17 14:31 DC Fentanyl (Sublimaze) 50 mcg PACU ODER PRN IV MODERATE PAIN LEVEL 4-6 01/28/17 11:30 01/28/17 14:31 DC Fentanyl (Sublimaze) 75 mcg PACU ORDER PRN IV SEVERE PAIN LEVEL 7-10 01/28/17 11:30 01/28/17 14:31 DC Oxycodone/ Acetaminophen (Percocet (5/ 325)) 1 tab PACU ORDER PRN PO PAIN LEVEL 1-5 01/28/17 11:30 01/28/17 16:00 DC Oxycodone/ Acetaminophen (Percocet (5/ 325)) 2 tab PACU ORDER PRN PO PAIN LEVEL 6-10 01/28/17 11:30 01/28/17 14:31 DC Ondansetron HCl (Zofran Inj) 4 mg PACU ORDER PRN IV NAUSEA AND/OR VOMITING 01/28/17 11:30 01/28/17 16:00 DC Trimethobenzamide HCl (Tigan) 200 mg PACU ORDER PRN IM NAUSEA AND/OR VOMITING 01/28/17 11:30 01/28/17 14:31 DC Labetalol HCl (Labetalol) 5 mg PACU ORDER PRN IV HIGH BLOOD PRESSURE 01/28/17 11:30 01/28/17 16:00 DC Hydralazine HCl (Apresoline) 5 mg PACU ORDER PRN IV HIGH BLOOD PRESSURE 01/28/17 11:30 01/28/17 16:00 DC Ephedrine Sulfate 5 mg PACU ORDER PRN IV MAP LESS THAN 60 01/28/17 11:30 01/28/17 14:31 DC Albuterol (Proventil 0.083% (Neb)) 2.5 mg PACU ORDER PRN HHN WHEEZING 01/28/17 11:30 01/28/17 12:34 DC Ipratropium [place] (Atrovent 0.02% (Neb)) 0.5 mg PACU ORDER PRN HHN WHEEZING 01/28/17 11:30 01/28/17 14:31 DC Meperidine HCl (Demerol) 25 mg PACU ORDER PRN IV POST-OP RIGORS 01/28/17 11:30 01/28/17 16:00 DC Diphenhydramine HCl (Benadryl) 25 mg PACU ORDER PRN IV PRURITUS 01/28/17 11:30 01/28/17 16:00 DC Midazolam HCl (Versed) 0.5 mg PACU ORDER PRN IV ANXIETY 01/28/17 11:30 01/28/17 14:31 DC Acetaminophen/ Hydrocodone Bitart ([place] (5/325)) 1 tab Q4H PRN PO PAIN LEVEL 4-6 01/28/17 12:30 UNV Acetaminophen/ Hydrocodone Bitart ([place] (5/325)) 2 tab Q4H PRN PO PAIN LEVEL 7-10 01/28/17 12:30 UNV Oxycodone/ Acetaminophen (Percocet (5/ 325)) 1 tab Q4H PRN PO PAIN LEVEL 4-6 01/28/17 12:30 UNV Oxycodone/ Acetaminophen (Percocet (5/ 325)) 2 tab Q4H PRN PO PAIN LEVEL 7-10 01/28/17 12:30 UNV Ibuprofen (Motrin) 600 mg Q6 PO 01/28/17 18:00 UNV Simethicone (Mylicon) 160 mg Q8H PRN PO DISTENSION/GAS/BLOATING 01/28/17 12:30 UNV Senna/Docusate Sodium (Senokot-S) 1 tab BID PO 01/29/17 09:00 UNV Lanolin (Orj-O-Fuvegq) 1 applic BEDSIDE MEDICATION PRN TOP BEDSIDE FOR SKYLAR TO NIPPLES 01/28/17 12:30 UNV Diphtheria/ Tetanus/Acell Pertussis 0.5 ml 0.5 ml ONCE ONCE IM* 01/31/17 09:00 01/31/17 09:01 UNV Oxytocin/Lactated Ringer's 500 ml @ 0 mls/hr ONCE PRN IV For Hemorrhage Management 01/28/17 12:30 01/28/17 14:31 DC Methylergonovine Maleate (Methergine) 0.2 mg ONCE PRN IM VAGINAL BLEEDING 01/28/17 12:30 UNV Carboprost Tromethamine (Hemabate) 250 mcg ONCE PRN IM VAGINAL BLEEDING 01/28/17 12:30 UNV Misoprostol 1000 mcg 1,000 mcg ONCE PRN MO VAGINAL BLEEDING 01/28/17 12:30 UNV Cefazolin Sodium 50 ml @ 100 mls/hr ONCE IVPB 01/28/17 12:30 01/28/17 12:59 UNV Oxytocin/Lactated Ringer's 500 ml @ 125 mls/hr Q4H IV 01/28/17 12:23 01/28/17 14:32 DC Acetaminophen/ Hydrocodone Bitart ([place] (5/325)) 1 tab Q4H PRN PO PAIN LEVEL 4-6 01/28/17 12:30 UNV Acetaminophen/ Hydrocodone Bitart ([place] (5/325)) 2 tab Q4H PRN PO PAIN LEVEL 7-10 01/28/17 12:30 UNV Oxycodone/ Acetaminophen (Percocet (5/ 325)) 1 tab Q4H PRN PO PAIN LEVEL 4-6 01/28/17 12:30 UNV Oxycodone/ Acetaminophen (Percocet (5/ 325)) 2 tab Q4H PRN PO PAIN LEVEL 7-10 01/28/17 12:30 UNV Ibuprofen (Motrin) 600 mg Q6 PO 01/29/17 00:00 UNV Simethicone (Mylicon) 160 mg Q8H PRN PO DISTENSION/GAS/BLOATING 01/28/17 12:30 UNV Senna/Docusate Sodium (Senokot-S) 1 tab BID PO 01/28/17 21:00 UNV Lanolin (Hhv-Q-Mkotzz) 1 applic BEDSIDE MEDICATION PRN TOP BEDSIDE FOR SKYLAR TO NIPPLES 01/28/17 12:30 UNV Diphtheria/ Tetanus/Acell Pertussis 0.5 ml 0.5 ml ONCE ONCE IM* 01/31/17 09:00 01/31/17 09:01 UNV Oxytocin/Lactated Ringer's 500 ml @ 0 mls/hr ONCE PRN IV For Hemorrhage Management 01/28/17 12:30 UNV Methylergonovine Maleate (Methergine) 0.2 mg ONCE PRN IM VAGINAL BLEEDING 01/28/17 12:30 UNV Carboprost Tromethamine (Hemabate) 250 mcg ONCE PRN IM VAGINAL BLEEDING 01/28/17 12:30 UNV Misoprostol 1000 mcg 1,000 mcg ONCE PRN MO VAGINAL BLEEDING 01/28/17 12:30 UNV Cefazolin Sodium 50 ml @ 100 mls/hr ONCE IVPB 01/28/17 12:30 01/28/17 12:59 UNV Oxytocin/Lactated Ringer's 500 ml @ 125 mls/hr Q4H IV 01/28/17 12:23 UNV Lactated Ringer's 1,000 ml @ 125 mls/hr Q8H IV 01/28/17 12:23 01/29/17 14:48 DC 01/29/17 07:03 Oxytocin/Lactated Ringer's 500 ml @ 0 mls/hr ONCE PRN IV For Hemorrhage Management 01/28/17 12:30 UNV Methylergonovine Maleate (Methergine) 0.2 mg ONCE PRN IM VAGINAL BLEEDING 01/28/17 12:30 UNV Carboprost Tromethamine (Hemabate) 250 mcg ONCE PRN IM VAGINAL BLEEDING 01/28/17 12:30 UNV Misoprostol 1000 mcg 1,000 mcg ONCE PRN MO VAGINAL BLEEDING 01/28/17 12:30 UNV Cefazolin Sodium 50 ml @ 100 mls/hr ONCE IVPB 01/28/17 12:30 01/28/17 12:59 UNV Oxytocin/Lactated Ringer's 500 ml @ 125 mls/hr Q4H IV 01/28/17 12:23 UNV Acetaminophen/ Hydrocodone Bitart ([place] (5/325)) 1 tab Q4H PRN PO PAIN LEVEL 4-6 01/28/17 12:30 Acetaminophen/ Hydrocodone Bitart ([place] (5/325)) 2 tab Q4H PRN PO PAIN LEVEL 7-10 01/28/17 12:30 Oxycodone/ Acetaminophen (Percocet (5/ 325)) 1 tab Q4H PRN PO PAIN LEVEL 4-6 01/28/17 12:30 Oxycodone/ Acetaminophen (Percocet (5/ 325)) 2 tab Q4H PRN PO PAIN LEVEL 7-10 01/28/17 12:30 Ibuprofen (Motrin) 600 mg Q6 PO 01/28/17 18:00 01/30/17 17:49 Simethicone (Mylicon) 160 mg Q8H PRN PO DISTENSION/GAS/BLOATING 01/28/17 12:30 01/29/17 08:52 Senna/Docusate Sodium (Senokot-S) 1 tab BID PO 01/28/17 21:00 01/30/17 09:01 Lanolin (Oqa-I-Wueqjz) 1 applic BEDSIDE MEDICATION PRN TOP BEDSIDE FOR SKYL[place] TO NIPPLES 01/28/17 12:30 01/29/17 08:53 Diphtheria/ Tetanus/Acell Pertussis 0.5 ml 0.5 ml ONCE ONCE IM* 01/31/17 09:00 01/31/17 09:01 Oxytocin/Lactated Ringer's 500 ml @ 0 mls/hr ONCE PRN IV For Hemorrhage Management 01/28/17 12:30 UNV Methylergonovine Maleate (Methergine) 0.2 mg ONCE PRN IM VAGINAL BLEEDING 01/28/17 12:30 Carboprost Tromethamine (Hemabate) 250 mcg ONCE PRN IM VAGINAL BLEEDING 01/28/17 12:30 Misoprostol 1000 mcg 1,000 mcg ONCE PRN MO VAGINAL BLEEDING 01/28/17 12:30 Cefazolin Sodium 50 ml @ 100 mls/hr ONCE IVPB 01/28/17 12:30 01/28/17 12:59 DC 01/28/17 18:16 Oxytocin/Lactated Ringer's 500 ml @ 125 mls/hr Q4H IV 01/28/17 12:23 UNV New born is doing well, Breast feeding BENJI WELDON MD Jan 30, 2017 20:26
[2017-01-31 04:00] VITALS: BP 111/75; PULSE 67; RESP 18
[2017-01-31] MEDS: IBUPROFEN 600 MG TAB PO SCH ×3 (05:37→12:11)
[2017-01-31 07:37] VITALS: BP 99/62; PULSE 58; RESP 18
[2017-01-31] MEDS: SENNA/DOCUSATE NA (8.6MG/50MG) TAB PO SCH (08:26)
[2017-01-31] MEDS ORDERED: DIPHTH/TET/ACEL PERTUSS (ADULT) 0.5 ML VIAL IM* ONE ×3 (09:00)
--- NOTE | 2017-01-31 09:42 | PD.PPDC ---
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
--- NOTE | 2017-01-31 09:47 | DS ---
Date/Time of Note Date/Time of Note DATE: 01/31/17 TIME: 09:45 Discharge Summary Admission/Discharge Info Admit Date/Time Jan 26, 2017 at 11:35 Discharge Date/Time January 31, 2017 at 9:45 AM Discharge Diagnosis Post primary Patient Condition: Good Procedures Primary Hx of Present Illness Term failure to progress, underwent primary Hospital Course Satisfactory recovery uneventful Home Meds Reported Medications Ferrous Sulfate* (Ferrous Sulfate*) 325 Mg Tabec, 325 MG PO DAILY, TAB 01/26/17 Vit No.124/Iron/FA ( Vitamin Tablet) 1 Each Tablet, 1 EACH PO DAILY, TAB 10/18/16 Follow-up Plan Post instruction given recommended to make appointment to be seen at the clinic in 1 week Primary Care Provider Care Physician No Primary Time spent on discharge: < 30 minutes JOSE GUADALUPE GOODMAN MD Jan 31, 2017 09:47
[2017-01-31 16:00] VITALS: BP 123/78; PULSE 68; RESP 18
== END 2017-01-31 17:10 | disposition home or self-care (01) | DRG 766 ==
LOC: L-D 10:42 → OBT 10:42 → L-D 11:35 → OBT 11:48 → L-D 14:10 → PP1 01-28 14:26
PROVIDERS: ADMIT Obstetrics & Gynecology; ATTEND Obstetrics & Gynecology
PROC: 10D00Z1 Extraction of Products of Conception, Low, Open Approach (ICD-10-PCS; principal; 2017-01-27)
DX: O66.40 Failed trial of labor, unspecified (principal); Z37.0 Single live birth; Z3A.40 40 weeks gestation of pregnancy
CPT/HCPCS: 62319; 76815; 76818; 85025; 85610; 85730; 86592; 86850; 86900; 86901; 87340; 90715; 94760; 99464; G0463; J0456; J0595; J0690; J1100; J1580; J1885; J2210; J2250; J2274; J2370; J2590; J2765; J3010; J7120

== ENCOUNTER 2017-03-02 18:20 | Emergency (ER) | END 2017-03-02 20:58 | disposition home or self-care (01) ==

== ENCOUNTER 2017-09-16 02:32 | Emergency (ER) | END 2017-09-16 05:37 | disposition home or self-care (01) ==

== ENCOUNTER 2018-02-11 10:11 | Emergency (ER) | payer MEDICAID ==
[~2018-02-11] VITALS: Ht 157.5 cm; Wt 57.1 kg
[~2018-02-11 10:11] MED LIST changes: +IBUP-1542 PO; -PREN-93 PO; +SULF1TAB31 PO
[2018-02-11 10:18] VITALS: Ht 157.5 cm; Wt 57.1 kg
[2018-02-11] MEDS ORDERED: HYDROCODONE/APAP (5/325) TAB PO ONE (11:30)
--- NOTE | 2018-02-11 11:35 | ERD ---
ER Documentation Chief Complaint Chief Complaint Complains of right breast pain x 1 week HPI 22-year-old female presents ED with complaints of right breast pain times 1 week. Patient admits to redness, swelling, warmth and tenderness palpation along right breast. Patient is not breast feeding. Denies fever, chills, nipple discharge, nausea, vomiting, diarrhea, constipation other symptoms. Patient was seen by her primary care physician 4 days ago for this complaint and was prescribed dicloxacillin and was told that she has an infection. ROS All systems reviewed and are negative except as per history of present illness. Medications Home Meds Active Scripts Hydrocodone/Acetaminophen ([place] 5-325 Tablet) 1 Each Tablet, 1 TAB PO Q6H PRN for PAIN, #7 TAB Prov:JONAS BAE PA-C 02/11/18 Ibuprofen* (Motrin*) 600 Mg Tab, 600 MG PO Q6H PRN for PAIN AND OR ELEVATED TEMP, #20 TAB Prov:MARTHA COE MD 09/16/17 Sulfamethoxazole/Trimethoprim* (Bactrim Ds* Tablet) 1 Each Tablet, 1 TAB PO BID, #14 TAB Prov:MARTHA COE MD 09/16/17 Allergies Allergies: Coded Allergies: No Known Allergy (Unverified , 03/02/17) PMhx/Soc History of Surgery: Yes () Anesthesia Reaction: No Hx Neurological Disorder: No Hx Respiratory Disorders: No Hx Cardiac Disorders: No Hx Psychiatric Problems: No Hx Miscellaneous Medical Probl: Yes (Diabetes Isipidus) Hx Alcohol Use: No Hx Substance Use: No Hx Tobacco Use: No Physical Exam Vitals Vital Signs Date Temp Pulse Resp B/P (MAP) Pulse Ox O2 O2 Flow FiO2 Time Delivery Rate 02/11/18 98.9 95 20 108/64 100 10:18 (79) Physical Exam Const: No acute distress Head: Atraumatic Eyes: Normal Conjunctiva ENT: Normal External Ears, Nose and Mouth. Neck: Full range of motion. No meningismus. Resp: Clear to auscultation bilaterally Cardio: Regular rate and rhythm, no murmurs BREAST: Pendulous breasts, right breast is remarkable for a fluctuant mass that is 1 inch in diameter WITH swelling, redness, warmth and tenderness to palpation along right nipple, there is no nipple discharge appreciated, Neur: Awake and alert Psych: Normal Mood and Affect Results 24 hrs Current Medications Medications Dose Sig/Cora Start Time Status Last (Trade) Ordered Route PRN Stop Time Admin Dose Reason Admin 1 tab ONCE ONCE 02/11/18 DC 02/11/18 Acetaminophen PO 11:30 02/11/18 11:25 / 11:31 Hydrocodone Bitart ([place] (5/325)) Diphtheria/ 0.5 ml ONCE ONCE 02/11/18 02/11/18 Tetanus/Acell IM* 16:00 02/11/18 15:44 Pertussis 16:01 (Adacel) Lidocaine/ 20 ml ONCE STAT 02/11/18 DC Epinephrine INJ 15:31 02/11/18 (Xylocaine 15:33 2%/ Epi Mpf(Sdv)) Procedures/MDM EKG, MONITORS, & DIAGNOSTIC IMAGING: [place] [id number] Radiology Main Line: [phone] DIAGNOSTIC IMAGING REPORT Patient: EDILMA ALARCON : 1995 Age: 22 Sex: F MR #: [id number] DOS: 02/11/18 1115 Ordering MD: JONAS BAE PA-C Location: [facility] Room/Bed: PROCEDURE: US Breast. CLINICAL INDICATION: Swelling / fluctuating mass of the right nipple. Evaluate for breast abscess. TECHNIQUE: Sonographic imaging of the right breast was performed. COMPARISON: None. FINDINGS: There is a 3.8 cm ovoid heterogeneous structure of the subareolar soft tissues of the breast. Acoustic through transmission is observed suggesting the presence of complex fluid. There is no internal vascularity. The surrounding soft tissues appear edematous. IMPRESSION: Heterogeneous avascular structure of the subareolar soft tissues of the right breast. Surrounding edematous soft tissues are observed. Imaging appearance likely reflects a breast abscess. Correlate with appropriate clinical features of abscess. Treatment and close follow-up advised. RPTAT: PP .Mony Galloway MD, Date Time Electronically viewed and signed by .Mony Galloway MD, on 02/11/2018 15:25 .T/ CC: JONAS BAE PA-C [id number] PROCEDURES: Abscess Incision and Drainage with irrigation by me: Location: Right breast Anesthesia: Local 1% Lidocaine with epinephrine Technique: [Irrigated. Disrupted loculations w/ instrumentation Packing: [None Complications: [Neurovascularly intact post procedure] 48 hour wound check. Scar minimization instructions given. Patient's skin symptoms have stabilized while they have been evaluated in the department and are appropriate for outpatient care and work up. Exam and w/u not consistent w/ sepsis, deep space infection, or foreign body. ER COURSE: The patient was given NORCO for pain The medication was well tolerated and the patient reports improvement in symptoms. The patient was stable throughout ED course. I kept the patient and/or family informed of laboratory and diagnostic imaging results throughout the emergency room course. The patient was promptly evaluated and a treatment plan was devised based on H&P and other data. This plan was discussed with the patient who agreed and had no further questions or concerns prior to discharge. MEDICAL DECISION MAKIN-year-old female presents ED with right breast abscess times 1 week. Patient was seen by her primary care physician and prescribed dicloxacillin but breast abscess if not improved. Ultrasound was done in confirms a breast abscess of the right breast. Incision and draiange was performed in the ED without complication. There is no lymphatic streaking. Low suspicion for sepsis, deep space infection, compartment syndrome, cellulitis, neurovascular injury, tendon injury. Patient was advised to apply warm compress to the area and also advised to return to the emergency department or be seen by primary care physician in 48 hours for wound check. Patient was also advised to finish full course of antibi otics that were prescribed by her primary care physician. Patient's vitals are stable and pt can be managed with close outpatient follow-up. Advised patient follow-up with primary care in the next 48 hours for wound check. Advised to return to ED with any worsening symptoms. I also had patient seen by my primary care physician and she agrees with plann DISPOSITION PLAN: We discussed follow up with the patient's primary care doctor within 24 to 48 hours. Patient counseled regarding my diagnostic impression and care plan. Prior to discharge all questions answered. Pt agrees with treatment plan and understands strict return precautions. Precautionary instructions provided including instructions to return to the ER if not improving or for any worsening or changing symptoms or concerns. SPECIALIST FOLLOW UP RECOMMENDED: None Patient has been advised to follow up with primary care in 1-2 days. Disclaimer: Inadvertent spelling and grammatical errors are likely due to EHR/dictation software use and do not reflect on the overall quality of patient care. Also, please note that the electronic time recorded on this note does not necessarily reflect the actual time of the patient encounter. Departure Diagnosis: Primary Impression: Breast abscess Condition: Stable Patient Instructions: Abscess, Incision And Drainage Referrals: [facility] Additional Instructions: Patient advised to apply warm compress to recently drained abscess. Patient was also advised to finish full course of antibiotics that were prescribed by her primary care physician. Patient was also advised to return to the emergency department in 48 hours or be seen by primary care physician for wound check. Patient advised to return to the ED immediately for new or worsening symptoms. Patient advised to follow up with primary care provider in the next 24-48 hours. Patient verbalized understanding and agrees with treatment plan and course of action. If patient has no primary care they may follow up with one of the [facility] listed on the following page or one of the options listed below [facility] [address] [place] [id number] or [facility] [address] [place] [address] or [facility] [address] [place] [address] JONAS BAE PA-C Feb 11, 2018 11:35
[2018-02-11] MEDS ORDERED: LIDOCAINE 2%/EPI MPF (SDV) 20 ML VIAL INJ STA (15:31)
[2018-02-11] MEDS ORDERED: HYDR-4011 PO (15:37)
[2018-02-11] MEDS ORDERED: DIPHTH/TET/ACEL PERTUSS (ADULT) 0.5 ML VIAL IM* ONE (16:00)
[2018-02-11 16:10] VITALS: BP 116/68; RESP 20
== END 2018-02-11 16:12 | disposition home or self-care (01) ==
LOC: FTE 10:11
DX: N61.1 Abscess of the breast and nipple (principal); Z23 Encounter for immunization
CPT/HCPCS: 10060; 76642; 90471; 90715; Z7502; Z7610

== ENCOUNTER 2018-02-17 04:30 | Emergency (ER) | payer MEDICAID ==
[~2018-02-17] VITALS: Ht 144.8 cm; Wt 56.1 kg
[~2018-02-17 04:30] MED LIST changes: +HYDR-4011 PO
[2018-02-17 04:36] VITALS: Ht 144.8 cm; Wt 56.1 kg
[2018-02-17] MEDS ORDERED: FAMOTIDINE 20 MG TAB PO STA (06:23)
--- NOTE | 2018-02-17 06:27 | ERD ---
ER Documentation Chief Complaint Chief Complaint upper abdominal pain x 3 days. hx of gallstones HPI 22-year-old female, with history of cholelithiasis, presents to the emergency department, complaining of burning, dull, epigastric pain for 3 days. The patient states that 3 days ago, she had a sudden episode of intense, sharp pain in the epigastric area, 9/10 that lasted approx 30 minutes and then slowly got better; but still persist with tenderness in the area, 3/10 ; she denies fevers, no chills, no nausea or vomiting. The patient has been taking Advil with mild improvement of the symptoms. ROS All systems reviewed and are negative except as per history of present illness. Medications Home Meds Active Scripts Ranitidine Hcl* (Zantac*) 150 Mg Tablet, 150 MG PO BID PRN for EPIGASTRIC PAIN, #10 TAB Prov:MICHELLE BAIRD MD 02/17/18 Hydrocodone/Acetaminophen ([place] 5-325 Tablet) 1 Each Tablet, 1 TAB PO BID PRN for PAIN, #8 TAB Prov:MICHELLE BAIRD MD 02/17/18 Amoxicillin/Potassium Clav (Amox-Clav 875-125 mg Tablet) 875-125 mg Tab, 1 TAB PO BID for 10 Days, #20 TAB Prov:MICHELLE BAIRD MD 02/17/18 Hydrocodone/Acetaminophen ([place] 5-325 Tablet) 1 Each Tablet, 1 TAB PO Q6H PRN for PAIN, #7 TAB Prov:JONAS BAE PA-C 02/11/18 Ibuprofen* (Motrin*) 600 Mg Tab, 600 MG PO Q6H PRN for PAIN AND OR ELEVATED TEMP, #20 TAB Prov:MARTHA COE MD 09/16/17 Sulfamethoxazole/Trimethoprim* (Bactrim Ds* Tablet) 1 Each Tablet, 1 TAB PO BID, #14 TAB Prov:MARTHA COE MD 09/16/17 Allergies Allergies: Coded Allergies: No Known Allergy (Unverified , 03/02/17) PMhx/Soc History of Surgery: Yes () Anesthesia Reaction: No Hx Neurological Disorder: No Hx Respiratory Disorders: No Hx Cardiac Disorders: No Hx Psychiatric Problems: No Hx Miscellaneous Medical Probl: Yes (Diabetes Isipidus) Hx Alcohol Use: No Hx Substance Use: No Hx Tobacco Use: No Physical Exam Vitals Vital Signs Date Temp Pulse Resp B/P (MAP) Pulse Ox O2 O2 Flow FiO2 Time Delivery Rate 02/17/18 97.0 62 18 113/68 99 04:36 (83) Physical Exam Const: No acute distress Head: Atraumatic Eyes: Normal Conjunctiva ENT: Normal External Ears, Nose and Mouth. Neck: Full range of motion. No meningismus. Resp: Clear to auscultation bilaterally Cardio: Regular rate and rhythm, no murmurs Abd: Soft, mild tenderness in the right upper quadrant area, no Carrion sign, no peritoneal signs, abdomen non distended. Normal bowel sounds Skin: No petechiae or rashes Back: No midline or flank tenderness Ext: No cyanosis, or edema Neur: Awake and alert Psych: Normal Mood and Affect Result Diagram: 02/17/1863702/17/18637 Results 24 hrs Laboratory Tests Test 02/17/18 06:38 02/17/18 07:15 02/17/18 07:17 White Blood Count 6.1 10^3/ul Red Blood Count 4.35 10^6/ul Hemoglobin 13.6 g/dl Hematocrit 40.3 % Mean Corpuscular Volume 92.6 fl Mean Corpuscular Hemoglobin 31.3 pg Mean Corpuscular 33.7 g/dl Hemoglobin Concent Red Cell Distribution Width 12.4 % Platelet Count 308 10^3/UL Mean Platelet Volume 9.6 fl Immature Granulocytes % 0.200 % Neutrophils % 72.3 % Lymphocytes % 18.8 % Monocytes % 6.4 % Eosinophils % 2.1 % Basophils % 0.2 % Nucleated Red Blood Cells % 0.0 /100WBC Immature Granulocytes # 0.010 10^3/ul Neutrophils # 4.4 10^3/ul Lymphocytes # 1.1 10^3/ul Monocytes # 0.4 10^3/ul Eosinophils # 0.1 10^3/ul Basophils # 0.0 10^3/ul Nucleated Red Blood Cells # 0.0 10^3/ul Sodium Level 141 mmol/L Potassium Level 4.2 mmol/L Chloride Level 107 mmol/L Carbon Dioxide Level 26 mmol/L Anion Gap 8 Blood Urea Nitrogen 10 mg/dl Creatinine 0.74 mg/dl Est Glomerular Filtrat Rate mL/min > 60 mL/min Glucose Level 101 mg/dl Calcium Level 9.6 mg/dl Total Bilirubin 2.8 mg/dl Direct Bilirubin 2.00 mg/dl Indirect Bilirubin 0.8 mg/dl Aspartate Amino Transf (AST/SGOT) 697 IU/L Alanine 557 IU/L Aminotransferase (ALT/SGPT) Alkaline Phosphatase 282 IU/L Total Protein 8.5 g/dl Albumin 4.6 g/dl Globulin 3.90 g/dl Albumin/Globulin Ratio 1.17 Lipase 93 U/L Bedside Urine pH (LAB) 6.0 Bedside Urine Protein (LAB) 2+ Bedside Urine Glucose (UA) Negative Bedside Urine Ketones (LAB) Trace Bedside Urine Blood 3+ Bedside Urine Nitrite (LAB) Positive Bedside Urine Leukocyte Esterase Trace (L POC Beta HCG, Qualitative NEGATIVE Current Medications Medications Dose Sig/Cora Start Time Status Last (Trade) Ordered Route PRN Stop Time Admin Dose Reason Admin Famotidine 20 mg ONCE STAT 02/17/18 DC 02/17/18 (Pepcid) PO 06:23 06:35 02/17/18 06:28 650 mg ONCE ONCE 02/17/18 DC 02/17/18 Acetaminophen PO 06:30 06:35 (Tylenol 02/17/18 06:31 Tab) Radiology Main Line: [phone] DIAGNOSTIC IMAGING REPORT Patient: EDILMA ALARCON : 1995 Age: 22 Sex: F MR #: [id number] DOS: 02/17/18 0623 Ordering MD: MICHELLE BAIRD MD [facility] Room/Bed: PROCEDURE: US Abdomen. CLINICAL INDICATION: Abdominal pain TECHNIQUE: Multiple real-time images were acquired of the patient's abdomen and retroperitoneum utilizing a high resolution transducer. COMPARISON: None FINDINGS: The pancreas could not be visualized due to overlying bowel gas. Multiple gallstones. No gallbladder wall thickening or pericholecystic fluid. Common bile duct mildly dilated maximal diameter 6.96 mm. Choledocholithiasis not demonstrated. No intrapelvic biliary ductal dilation. Recommend clinical correlation. Liver normal in size maximal sagittal dimension 15.03 cm. Normal liver parenchymal echogenicity without focal lesions. Right kidney normal in size measuring 8.14 x 2.99 cm. Normal right renal parenchymal echogenicity without hydronephrosis, calculus or mass. Normal portal venous flow. IMPRESSION: 1. Multiple gallstones without gallbladder wall thickening or pericholecystic fluid. 2. Dilated common bile duct maximal transverse diameter 6.96 mm. No obstructing lesion demonstrated. Recommend clinical correlation. 3. Unremarkable liver and right kidney. 4. Inability to visualize the pancreas due to overlying bowel gas. RPTAT:AAJJ Physician Hannah Date Time Electronically viewed and signed by Physician Hannah on 02/17/2018 07:30 BM/ CC: MICHELLE BAIRD MD [phone] Procedures/MDM Vital signs stable. Differential diagnosis include but not limited to: UTI, co litis, gastroenteritis, kidney stones, irritable bowel syndrome, inflammatory bowel syndrome, malabsorption syndrome, cholelithiasis, food intolerance, medication side effect, pancreatitis, diverticulitis, bowel obstruction. Physical examination and clinical presentation consistent most likely with biliary colic, no evidence of acute cholecystitis, the patient was also found to have a urinary tract infection in addition to elevated transaminases and bilirubin which it can be consistent with obstruction, however, based on the HPI and improvement of the symptoms, I considered that probably the patient passed a stone. During the ED course the patient remained stable, no new complaints. Results and clinical impression discussed with the patient who agrees with management. The patient is stable to be treated outpatient and will be discharged home; some side effects of prescribed medications (headache, rash, nausea, vomiting, diarrhea, drowsiness, habituation, bleeding, hypertension, interactions with other medications) were reviewed. The patient was told to return to the emergency department in 48 hours for monitoring of the liver function test, also, follow up with the primary care provider in the next 48h is recommended. If symptoms persist, worsen or new symptoms develop, then patient should return to the ED immediately. Instructions explained and given directly by me to the patient with acknowledgment and demonstrated understanding. Disclaimer: Inadvertent spelling and grammatical errors are likely due to EHR/dictation software use and do not reflect on the overall quality of patient care. Also, please note that the electronic time recorded on this note does not necessarily reflect the actual time of the patient encounter. Departure Diagnosis: Primary Impression: UTI (urinary tract infection) Additional Impressions: Elevated transaminase measurement Cholelithiasis without cholecystitis Condition: Stable Additional Instructions: Thank you very much for allowing us to participate in your care. Your health and safety is our top priority at [facility]. Call your primary care doctor TOMORROW for an appointment during the next 2-4 days and bring all the information and medications prescribed. Have prescriptions filled and follow precisely the directions on the label. If the symptoms get worse and your provider is unavailable, return to the Emergency Department immediately. MICHELLE BAIRD MD Feb 17, 2018 06:27
[2018-02-17] MEDS ORDERED: ACETAMINOPHEN 325 MG TAB PO ONE (06:30)
[2018-02-17] MEDS ORDERED: AMOX1TAB10 PO (07:46)
[2018-02-17] MEDS ORDERED: RANI150T35 PO (07:46)
[2018-02-17] MEDS ORDERED: HYDR-4011 PO (07:46)
== END 2018-02-17 08:04 | disposition home or self-care (01) ==
LOC: FTE 04:30
DX: N39.0 Urinary tract infection, site not specified (principal); R74.0 Nonspecific elevation of levels of transaminase and lactic acid dehydrogenase [LDH]; K80.20 Calculus of gallbladder without cholecystitis without obstruction
CPT/HCPCS: 36415; 76705; 80053; 81003; 81025; 83690; 85025; Z7502; Z7610

== ENCOUNTER 2018-02-19 04:57 | Emergency (ER) | payer MEDICAID ==
[~2018-02-19] VITALS: Ht 144.8 cm; Wt 56.4 kg
[~2018-02-19 04:57] MED LIST changes: +AMOX1TAB10 PO; +RANI150T35 PO
[2018-02-19 04:59] VITALS: Ht 144.8 cm; Wt 56.4 kg
[2018-02-19] MEDS ORDERED: ACET325T33 PO (07:29)
[2018-02-19] MEDS ORDERED: FAMO-96 PO (07:29)
[2018-02-19 07:39] VITALS: BP 98/60; PULSE 74; RESP 18
--- NOTE | 2018-02-19 08:05 | ERD ---
ER Documentation Chief Complaint Chief Complaint was told to come back for repeat blood test, seen 2 days ago HPI 22-year-old female presenting for repeat blood tests. Patient was seen here 2 days ago with elevated liver enzymes. Patient did have gallstones seen on ultrasound however no findings of cholecystitis. Patient is recommended to return for repeat check to ensure no cholecystitis symptoms have developed. Patient states she has no epigastric pain. She has been taking her medication for urinary tract infection and has noticed improvement. Denies any hematuria. Denies other medical problems. NKDA. Surgical history denies. Social history denies ROS All systems reviewed and are negative except as per history of present illness. Medications Home Meds Active Scripts Acetaminophen* (Tylenol*) 325 Mg Tablet, 2 TAB PO Q8 PRN for PAIN AND OR ELEVATED TEMP, #20 TAB Prov:FAISAL SMITH PA-C 02/19/18 Famotidine* (Pepcid*) 20 Mg Tablet, 20 MG PO BID for 4 Days, #30 TAB Prov:FAISAL SMITH PA-C 02/19/18 Ranitidine Hcl* (Zantac*) 150 Mg Tablet, 150 MG PO BID PRN for EPIGASTRIC PAIN, #10 TAB Prov:MICHELLE BAIRD MD 02/17/18 Hydrocodone/Acetaminophen ([place] 5-325 Tablet) 1 Each Tablet, 1 TAB PO BID PRN for PAIN, #8 TAB Prov:MICHELLE BAIRD MD 02/17/18 Amoxicillin/Potassium Clav (Amox-Clav 875-125 mg Tablet) 875-125 mg Tab, 1 TAB PO BID for 10 Days, #20 TAB Prov:MICHELLE BAIRD MD 02/17/18 Hydrocodone/Acetaminophen ([place] 5-325 Tablet) 1 Each Tablet, 1 TAB PO Q6H PRN for PAIN, #7 TAB Prov:JONAS BAE PA-C 02/11/18 Ibuprofen* (Motrin*) 600 Mg Tab, 600 MG PO Q6H PRN for PAIN AND OR ELEVATED TEMP, #20 TAB Prov:MARTHA COE MD 09/16/17 Sulfamethoxazole/Trimethoprim* (Bactrim Ds* Tablet) 1 Each Tablet, 1 TAB PO BID, #14 TAB Prov:MARTHA COE MD 09/16/17 Allergies Allergies: Coded Allergies: No Known Allergy (Unverified , 03/02/17) PMhx/Soc History of Surgery: Yes () Anesthesia Reaction: No Hx Neurological Disorder: No Hx Respiratory Disorders: No Hx Cardiac Disorders: No Hx Psychiatric Problems: No Hx Miscellaneous Medical Probl: Yes (Diabetes Isipidus) Hx Alcohol Use: No Hx Substance Use: No Hx Tobacco Use: No Smoking Status: Never smoker FmHx Family History: No diabetes, No coronary disease, No other Physical Exam Vitals Vital Signs Date Temp Pulse Resp B/P (MAP) Pulse Ox O2 O2 Flow FiO2 Time Delivery Rate 02/19/18 97.0 74 18 98/60 (73) 98 Room Air 07:39 02/19/18 97.0 63 18 99/65 (76) 97 04:59 Physical Exam GENERAL: The patient is well-appearing, well-nourished, in no acute distress HEENT: Atraumatic. Conjunctivae are pink. Pupils equal, round, and reactive to light. There is no scleral icterus. Tympanic membranes clear bilaterally. Oropharynx clear. No nystagmus or photophobia. CHEST: Clear to auscultation bilaterally. There are no rales, wheezes or rhonchi. HEART: Regular rate and rhythm. No murmurs, clicks, rubs or gallops. No S3 or S4. ABDOMEN:Soft, nontender and nondistended. Good bowel sounds. No rebound or guarding. No gross peritonitis. No gross organomegaly or masses. Very mild tenderness palpation epigastric region with no rebound tenderness. Result Diagram: 02/19/1844 02/19/1844 Results 24 hrs Laboratory Tests Test 02/19/18 06:41 02/19/18 06:44 POC Beta HCG, Qualitative NEGATIVE White Blood Count 4.9 10^3/ul Red Blood Count 4.11 10^6/ul Hemoglobin 13.0 g/dl Hematocrit 38.8 % Mean Corpuscular Volume 94.4 fl Mean Corpuscular Hemoglobin 31.6 pg Mean Corpuscular Hemoglobin Concent 33.5 g/dl Red Cell Distribution Width 12.6 % Platelet Count 281 10^3/UL Mean Platelet Volume 10.0 fl Immature Granulocytes % 0.400 % Neutrophils % 41.5 % Lymphocytes % 45.2 % Monocytes % 9.5 % Eosinophils % 3.0 % Basophils % 0.4 % Nucleated Red Blood Cells % 0.0 /100WBC Immature Granulocytes # 0.020 10^3/ul Neutrophils # 2.0 10^3/ul Lymphocytes # 2.2 10^3/ul Monocytes # 0.5 10^3/ul Eosinophils # 0.2 10^3/ul Basophils # 0.0 10^3/ul Nucleated Red Blood Cells # 0.0 10^3/ul Urine Color YELLOW Urine Clarity CLEAR Urine pH 5.0 Urine Specific Bath 1.010 Urine Ketones NEGATIVE mg/dL Urine Nitrite NEGATIVE mg/dL Urine Bilirubin NEGATIVE mg/dL Urine Urobilinogen NEGATIVE mg/dL Urine Leukocyte Esterase NEGATIVE Ab/ul Urine Hemoglobin NEGATIVE mg/dL Urine Glucose NEGATIVE mg/dL Urine Total Protein NEGATIVE mg/dl Sodium Level 143 mmol/L Potassium Level 4.1 mmol/L Chloride Level 109 mmol/L Carbon Dioxide Level 24 mmol/L Anion Gap 10 Blood Urea Nitrogen 9 mg/dl Creatinine 0.70 mg/dl Est Glomerular Filtrat Rate mL/min > 60 mL/min Glucose Level 94 mg/dl Calcium Level 9.2 mg/dl Total Bilirubin 0.3 mg/dl Direct Bilirubin 0.00 mg/dl Indirect Bilirubin 0.3 mg/dl Aspartate Amino Transf (AST/SGOT) 149 IU/L Alanine Aminotransferase (ALT/SGPT) 333 IU/L Alkaline Phosphatase 246 IU/L Total Protein 8.0 g/dl Albumin 4.3 g/dl Globulin 3.70 g/dl Albumin/Globulin Ratio 1.16 Lipase 130 U/L Procedures/[facility] DIAGNOSTIC IMAGING REPORT Patient: EDILMA ALARCON : 1995 Age: 22 Sex: F [id number]: 02/19/18 0619 Ordering MD: JUDY SMITH PA-C Location: [facility] Room/Bed: PROCEDURE: Ultrasound right upper quadrant CLINICAL INDICATION: Abdominal pain. TECHNIQUE: Sonographic imaging of the right upper quadrant was performed with grayscale and color Doppler techniques. COMPARISON: February 17, 2018. FINDINGS: LIVER: Measures 15.1 cm in length without appreciated abnormality. GALLBLADDER: Small gallstones are again seen. There is no wall thickening or pericholecystic fluid COMMON BILE DUCT: Measures up to 0.6 cm. VISUALIZED PANCREAS: Unremarkable. RIGHT KIDNEY: Measures 5.5 cm in length without appreciated abnormality. VISUALIZED AORTA AND INFERIOR VENA CAVA: Unremarkable. IMPRESSION: 1. Small gallstones are again seen without additional sonographic evidence for acute cholecystitis. 2. Common bile duct is at the upper limits of normal measuring 0.6 cm. MDM: 22-year-old female presenting for recheck of liver enzymes and lab tests. Patient has had improved. Patient's ultrasound has remained unchanged with no signs of developing cholecystitis. I have low suspicion for choledocholithiasis, cholecystitis, cholangitis or pancreatitis. Patient's urine is improved and infection appears to be resolving with antibiotic treatment. Will be no change to the patient's treatment. I did tell patient if she develops severe epigastric pain to immediately return to the ER as she has at risk for developing cholecystitis. Patient is discharged stricter precautions. I have low suspicion for respiratory or cardiac emergency. I have low suspicion for other acute abdominal emergencies. I do not feel further workup is indicated. She is told to follow-up with primary care within 1-2 days for close evaluation. Patient is told symptoms change or worsen to immediately return to the ER. All questions answered discharge Departure Diagnosis: Primary Impression: Encounter for laboratory test Condition: Stable Patient Instructions: Epigastric Pain (Uncertain Cause) Referrals: [facility] YOU HAVE RECEIVED A MEDICAL SCREENING EXAM AND THE RESULTS INDICATE THAT YOU DO NOT HAVE A CONDITION THAT REQUIRES URGENT TREATMENT IN THE EMERGENCY DEPARTMENT. FURTHER EVALUATION AND TREATMENT OF YOUR CONDITION CAN WAIT UNTIL YOU ARE SEEN IN YOUR DOCTORS OFFICE WITHIN THE NEXT 1-2 DAYS. IT IS YOUR RESPONSIBILITY TO MAKE AN APPOINTMENT FOR FOLOW-UP CARE. IF YOU HAVE A PRIMARY DOCTOR --you should call your primary doctor and schedule an appointment IF YOU DO NOT HAVE A PRIMARY DOCTOR YOU CAN CALL OUR PHYSICIAN REFERRAL HOTLINE AT IF YOU CAN NOT AFFORD TO SEE A PHYSICIAN YOU CAN CHOSE FROM THE FOLLOWING [facility] CLINICS [facility] [address] [facility] [address] [facility] [address] [facility] [address] [facility] [address] [facility] [address] Additional Instructions: FOLLOW UP WITH YOUR PRIMARY CARE PHYSICIAN TOMORROW.Return to this facility if you are not improving as expected. FAISAL SMITH PA-C Feb 19, 2018 08:05
== END 2018-02-19 07:40 | disposition home or self-care (01) ==
LOC: FTE 04:57
DX: Z00.00 Encounter for general adult medical examination without abnormal findings (principal); R10.9 Unspecified abdominal pain
CPT/HCPCS: 36415; 76705; 80053; 81003; 81025; 83690; 85025; Z7502